=== PATIENT | male | born 1945 | race Caucasian/White ===

== ENCOUNTER 2018-09-30 09:59 | Outpatient (CLI) | payer MEDICARE, BC ==
[2018-09-30] VITALS (21 sets, daily range): BP systolic 87–129; BP diastolic 43–85
== END 2018-09-30 23:59 | disposition home or self-care (01) ==
LOC: CARD DIAG 09:59
PROVIDERS: ATTEND Internal Medicine Interventional Cardiology
DX: R42 Dizziness and giddiness (principal); Z87.891 Personal history of nicotine dependence
CPT/HCPCS: 93660